=== PATIENT | female | born 1950 | race Asian ===

== ENCOUNTER 2021-06-11 13:33 | Outpatient (CLI) | payer OTHER | END 2021-06-11 20:43 | disposition home or self-care (01) | LOC: NM 13:33 | PROVIDERS: ATTEND Physician Assistant | DX: R06.09 Other forms of dyspnea (principal); R00.0 Tachycardia, unspecified; R79.89 Other specified abnormal findings of blood chemistry | CPT/HCPCS: A9540; A9567 ==